=== PATIENT | female | born 2000 | race American Indian/Alaskan Native ===

== ENCOUNTER 2024-01-20 00:50 | Emergency (ER) | payer MEDICAID ==
[2024-01-20] MEDS: bacitracin 15gm ointment TP ONE (02:15)
[2024-01-20 02:22] VITALS: BP 144/72; PULSE 77; RESP 16; TEMP 96.9; O2SAT 99
== END 2024-01-20 02:26 | disposition home or self-care (01) ==
LOC: ER 00:51
DX: S90.822A Blister (nonthermal), left foot, initial encounter (principal); X58.XXXA Exposure to other specified factors, initial encounter; Y93.89 Activity, other specified; Y92.89 Other specified places as the place of occurrence of the external cause; Y99.8 Other external cause status
CPT/HCPCS: 99282; J7030; A6449

== ENCOUNTER 2024-01-22 03:10 | Emergency (ER) | payer MEDICAID ==
[~2024-01-22] VITALS: Ht 152.4 cm; Wt 65.5 kg
[2024-01-22 03:13] VITALS: BP 119/85; PULSE 110; RESP 16; TEMP 98; O2SAT 100
[2024-01-22] MEDS: acetaminophen 325mg tablet PO ONE (04:03)
== END 2024-01-22 04:08 | disposition home or self-care (01) ==
LOC: ER 03:10
DX: S90.822A Blister (nonthermal), left foot, initial encounter (principal); X58.XXXA Exposure to other specified factors, initial encounter; Y93.89 Activity, other specified; Y92.89 Other specified places as the place of occurrence of the external cause; Y99.8 Other external cause status
CPT/HCPCS: 99282

== ENCOUNTER 2024-04-28 05:28 | Emergency (ER) | payer MEDICAID ==
[~2024-04-28] VITALS: Ht 157.5 cm; Wt 52.3 kg
[2024-04-28 05:30] VITALS: BP 113/81; PULSE 102; RESP 18; TEMP 98.3; O2SAT 97
[2024-04-28 06:57] LABS: BILIRUBIN,URINE NEGATIVE (Neg); CLARITY,URINE SLIGHTLY CLOUDY (Clear); COLOR,URINE YELLOW (Yellow); GLUCOSE, URINE NEGATIVE (Neg); KETONES,URINE TRACE mg/dl (Neg); LEUKOCYTE ESTERASE ,URINE NEGATIVE (Neg); NITRITES, URINE POSITIVE (Neg); OCCULT BLOOD,URINE NEGATIVE (Neg); PROTEIN,URINE NEGATIVE (Neg)
[2024-04-28 07:11] LABS: UA COLLECTION TYPE OTHER
[2024-04-28 07:16] LABS: SQUAMOUS EPITHELIAL CELL,UR MANY /LPF (FEW); TRANSITIONAL EPI CELLS,URINE MODERATE /HPF
[2024-04-28 07:17] LABS: BACTERIA,URINE 4+ /HPF (Neg); RBC,URINE 0-2 /HPF (0-2)
[2024-04-28 07:18] LABS: CAL OXALATE CRYSTALS 1+ /HPF (NEGATIVE)
[2024-04-30 08:25] LABS: CHLAMYDIA TRACHOMATIS, NAA Negative (Negative)
== END 2024-04-28 07:24 | disposition home or self-care (01) ==
LOC: ER 05:28
DX: Z00.00 Encounter for general adult medical examination without abnormal findings (principal); Z59.00 Homelessness unspecified
CPT/HCPCS: 81001; 87491; 99283

== ENCOUNTER 2024-04-30 21:41 | Emergency (ER) | payer MEDICAID ==
[~2024-04-30] VITALS: Ht 154.9 cm; Wt 51.0 kg
[2024-04-30] MEDS: normal saline 1000ML IV soln IVB ONE (22:39)
[2024-04-30 22:48] LABS: BASOPHILS % (AUTO) 0.5 % (0-1); EOSINOPHILS % (AUTO) 0.5 % (0-6); HEMATOCRIT 41.4 % (35.0-45.0); HEMOGLOBIN 13.3 g/dl (12.0-16.0); LYMPHOCYTES # (AUTO) 1.6 X10'3 (1.1-4.8); MEAN CORPUSCULAR HEMOGLOBIN 26.9 PG (27.0-31.0); MEAN CORPUSCULAR VOLUME 84.1 FL (78-98); MEAN PLATELET VOLUME 8.4 FL (7.4-10.4); MONOCYTES # (AUTO) 0.8 X10'3 (0-0.9); MONOCYTES % (AUTO) 8.6 % (2-12); NEUTROPHILS # (AUTO) 6.6 X10'3 (1.8-7.7); NEUTROPHILS % (AUTO) 72.4 % (42-75); PLATELET COUNT 333 X10'3 (140-440); RED BLOOD COUNT 4.92 X10'6 (4.20-5.60); RED CELL DISTRIBUTION WIDTH 16.8 % (11.5-14.5); WHITE BLOOD COUNT 9.1 X10'3 (4.5-11.0)
[2024-04-30 22:51] LABS: ALBUMIN 3.5 G/DL (3.4-5.0); ANION GAP 6 (8-16); BLOOD UREA NITROGEN 9 MG/DL (7-18); BUN/CREATININE RATIO 14.1 (10.0-20.0); CHLORIDE 105 MMOL/L (99-107); CREATININE 0.64 MG/DL (0.40-0.90); ETHANOL < 10 MG/DL (<10); GLUCOSE 91 MG/DL (70-104); POTASSIUM 3.6 MMOL/L (3.5-5.1); SODIUM 139 MMOL/L (135-145); TOTAL CARBON DIOXIDE 27.8 MMOL/L (24-32); eCRCL 103 ML/MIN; eGFR > 90 ML/MIN
[2024-04-30 22:53] LABS: URINE HCG NEGATIVE (NEG)
[2024-04-30 23:11] LABS: URINE AMPHETAMINE SCREEN POSITIVE (Neg); URINE BARBITUATE SCREEN NEGATIVE (Neg); URINE BENZODIAZEPINES SCREEN NEGATIVE (Neg); URINE CANNABINOID SCREEN NEGATIVE (Neg); URINE COCAINE SCREEN NEGATIVE (Neg); URINE METHADONE SCREEN NEGATIVE (Neg); URINE OPIATE SCREEN NEGATIVE (Neg); URINE PHENCYCLIDINE SCREEN NEGATIVE (Neg)
[2024-04-30] MEDS ORDERED: iohexol 300mg/ml 100ml inj. ONE (23:48)
[2024-05-01 02:48] VITALS: BP 103/81; PULSE 101; RESP 17; TEMP 97.8; O2SAT 97
== END 2024-05-01 02:55 | disposition home or self-care (01) ==
LOC: ER 21:43 → EEVIPCON 21:43 → ER 05-01 02:55
DX: R07.81 Pleurodynia (principal); R07.89 Other chest pain; J45.909 Unspecified asthma, uncomplicated; F17.200 Nicotine dependence, unspecified, uncomplicated; F15.90 Other stimulant use, unspecified, uncomplicated
CPT/HCPCS: 36415; 71046; 74177; 80048; 80305; 80320; 81025; 85025; 96360; 99285; J7030; Q9967

== ENCOUNTER 2024-05-07 21:02 | Emergency (ER) | payer MEDICAID ==
[~2024-05-07] VITALS: Ht 154.9 cm; Wt 51.0 kg
[2024-05-07 21:13] VITALS: TEMP 98.4
[2024-05-07 21:52] LABS: URINE HCG NEGATIVE (NEG)
[2024-05-07 21:53] VITALS: O2SAT 98
[2024-05-07 21:53] LABS: BILIRUBIN,URINE NEGATIVE (Neg); CLARITY,URINE CLOUDY (Clear); COLOR,URINE YELLOW (Yellow); GLUCOSE, URINE NEGATIVE (Neg); KETONES,URINE NEGATIVE (Neg); LEUKOCYTE ESTERASE ,URINE NEGATIVE (Neg); NITRITES, URINE NEGATIVE (Neg); OCCULT BLOOD,URINE NEGATIVE (Neg); PROTEIN,URINE NEGATIVE (Neg)
[2024-05-07 21:55] LABS: BASOPHILS # (AUTO) 0.1 X10'3 (0-0.2); EOSINOPHILS # (AUTO) 0.3 X10'3 (0-0.9); EOSINOPHILS % (AUTO) 3.4 % (0-6); HEMATOCRIT 40.4 % (35.0-45.0); HEMOGLOBIN 12.9 g/dl (12.0-16.0); LYMPHOCYTES # (AUTO) 2.1 X10'3 (1.1-4.8); LYMPHOCYTES % (AUTO) 24.4 % (21-51); MEAN CORPUSCULAR HEMOGLOBIN 27.1 PG (27.0-31.0); MEAN CORPUSCULAR HGB CONC 31.9 g/dL (33.0-36.5); MEAN CORPUSCULAR VOLUME 84.8 FL (78-98); MONOCYTES # (AUTO) 0.8 X10'3 (0-0.9); MONOCYTES % (AUTO) 9.5 % (2-12); NEUTROPHILS # (AUTO) 5.3 X10'3 (1.8-7.7); NEUTROPHILS % (AUTO) 61.7 % (42-75); PLATELET COUNT 482 X10'3 (140-440); RED BLOOD COUNT 4.77 X10'6 (4.20-5.60); WHITE BLOOD COUNT 8.6 X10'3 (4.5-11.0)
[2024-05-07 21:58] LABS: UA COLLECTION TYPE CLN CATCH MIDSTREAM
[2024-05-07 21:59] LABS: SQUAMOUS EPITHELIAL CELL,UR MANY /LPF (FEW)
[2024-05-07 22:00] LABS: BACTERIA,URINE FEW /HPF (Neg); RBC,URINE 0-2 /HPF (0-2); WBC,URINE 0-4 /HPF (0-4)
[2024-05-07 22:07] LABS: ALANINE AMINOTRANSFERASE 24 U/L (12-78); ALBUMIN 3.6 G/DL (3.4-5.0); ALBUMIN/GLOBULIN RATIO 0.8 (1.1-1.5); ALKALINE PHOSPHATASE 102 IU/L (46-116); ANION GAP 7 (8-16); ASPARTATE AMINO TRANSFERASE 18 U/L (10-37); BILIRUBIN,TOTAL 0.5 MG/DL (0.1-1.0); BLOOD UREA NITROGEN 9 MG/DL (7-18); BUN/CREATININE RATIO 11.4 (10.0-20.0); CHLORIDE 103 MMOL/L (99-107); CREATININE 0.79 MG/DL (0.40-0.90); GLUCOSE 88 MG/DL (70-104); LIPASE 134 U/L (16-77); POTASSIUM 3.6 MMOL/L (3.5-5.1); SODIUM 139 MMOL/L (135-145); TOTAL CARBON DIOXIDE 29.1 MMOL/L (24-32); TOTAL PROTEIN 8.2 G/DL (6.4-8.2); eCRCL 84 ML/MIN; eGFR 90 ML/MIN
[2024-05-07] MEDS ORDERED: DOXY100C43 PO (22:13)
[2024-05-07] MEDS: CefTRIAXone 500MG IM Kit w/LIDOcaine IM ONE (22:23)
[2024-05-07 23:27] VITALS: BP 100/69; PULSE 84; RESP 14
== END 2024-05-07 23:32 | disposition home or self-care (01) ==
LOC: ER 21:02
DX: R10.84 Generalized abdominal pain (principal); J02.9 Acute pharyngitis, unspecified; R30.9 Painful micturition, unspecified; J45.909 Unspecified asthma, uncomplicated; F12.90 Cannabis use, unspecified, uncomplicated; Z72.89 Other problems related to lifestyle; Z59.00 Homelessness unspecified; Z79.2 Long term (current) use of antibiotics
CPT/HCPCS: 36415; 80053; 81001; 81025; 83690; 85025; 96372; 99283; J0696

== ENCOUNTER 2024-07-12 02:56 | Emergency (ER) | payer MEDICAID ==
[~2024-07-12] VITALS: Ht 160 cm; Wt 54.5 kg
[2024-07-12 03:08] VITALS: BP 102/51; PULSE 88; RESP 16; TEMP 98.2; O2SAT 97
== END 2024-07-12 06:53 | disposition left against medical advice (07) ==
LOC: ER 02:57
DX: S80.02XA Contusion of left knee, initial encounter (principal); S80.01XA Contusion of right knee, initial encounter; Z53.21 Procedure and treatment not carried out due to patient leaving prior to being seen by health care provider; X58.XXXA Exposure to other specified factors, initial encounter; Y93.89 Activity, other specified; Y92.89 Other specified places as the place of occurrence of the external cause; Y99.8 Other external cause status
CPT/HCPCS: 73590

== ENCOUNTER 2024-10-07 08:50 | Emergency (ER) | payer MEDICAID ==
[~2024-10-07] VITALS: Ht 152.4 cm; Wt 54.3 kg
[2024-10-07] MEDS ORDERED: AMOX-117 PO (10:36)
[2024-10-07 10:44] VITALS: BP 110/41; PULSE 93; RESP 16; TEMP 98.3; O2SAT 99
== END 2024-10-07 10:45 | disposition home or self-care (01) ==
LOC: ER 08:51
DX: H66.93 Otitis media, unspecified, bilateral (principal); J45.909 Unspecified asthma, uncomplicated; F15.90 Other stimulant use, unspecified, uncomplicated
CPT/HCPCS: 99283

== ENCOUNTER 2024-10-09 14:55 | Emergency (ER) | payer MEDICAID ==
[~2024-10-09] VITALS: Ht 177.8 cm; Wt 56.8 kg
[~2024-10-09 14:55] MED LIST: AMOX-117 PO
[2024-10-09 15:00] VITALS: BP 99/59; PULSE 85; RESP 16; O2SAT 100
[2024-10-09] MEDS: neomy sulf/polymyx B sulf/HC 10ml otic suspension LEFT EAR ONE (15:49)
[2024-10-09] MEDS: amox tr/potassium clavulanate 875/125mg TAB PO ONE (15:49)
[2024-10-09 15:52] VITALS: TEMP 98.9
== END 2024-10-09 15:54 | disposition home or self-care (01) ==
LOC: ER 14:56
DX: H60.92 Unspecified otitis externa, left ear (principal); H83.02 Labyrinthitis, left ear; J45.909 Unspecified asthma, uncomplicated; F15.90 Other stimulant use, unspecified, uncomplicated
CPT/HCPCS: 99283

== ENCOUNTER 2025-02-27 15:20 | Emergency (ER) | payer MEDICAID ==
[~2025-02-27] VITALS: Ht 162.6 cm; Wt 55.0 kg
--- NOTE | 2025-02-27 16:48 | Physician Documentation ---
History of Present Illness ~ Chief Complaint: Dizziness Stated Complaint: FEELING FAINT Time Seen by MD: 16:26 Primary Medical Doctor: [facility] HPI This is a 24-year-old female who was brought in from the [place] for concern for feeling like she was going to faint, patient additionally reports she would like to be tested for STIs though reports no dysuria or other symptoms. Patient reports I need my vagina checked I hear voices coming from it. EMS reports patient reports them feeling faint and wanting a test. Medication Reconciliation Allergies: Coded Allergies: No Known Allergies (Unverified , 02/27/25) Past Medical History Past Medical History: Asthma Past Surgical History: no surgical history Alcohol Use: Occasionally Drug Use: methamphetamine Lives In: Homeless Physical Exam Vital Signs: Temperature: 98.9, Heart Rate: 99, Respiratory Rate: 13, BP: 123/81, Pulse Oximetry: 99, Weight: 55.000 Oxygen Flow Rate: 0 Physical Exam VITALS: Reviewed and as above. GENERAL: Alert and oriented x4, nontoxic appearing, no apparent distress, disheveled appearing HEENT: PERRLA EOMI RESPIRATORY: No increased work of breathing, no respiratory distress, speaking in full clear sentences, lung sounds in all malloy CV: Regular rate and rhythm no murmur BACK: No CVA tenderness GI: Nontender to palpation MUSCULOSKELETAL: NEURO: GCS of 15 PSYCH: Bizarre mood and affect, stating no SI or HI Progress Results/Orders Results/Orders Orders - CORNELIA DURAN Electrocardiogram (02/27/25 16:16) Completed Orders - CORNELIA DURAN Cbc/Diff (02/27/25 16:16) Electrocardiogram (02/27/25 16:16) BMP (02/27/25 16:16) Hcg, Ur Ql (02/27/25 16:16) Drug Screen, Urine (02/27/25 16:16) Ethanol (02/27/25 16:16) Ua W/Microscopic, Cult If Ind (02/27/25 17:24) Vital Signs 02/27/25 02/27/25 02/27/25 02/27/25 15:28 17:53 17:54 19:01 Temp 98.9 98.9 98.9 Pulse 99 98 90 Resp 13 16 16 16 B/P (MAP) 123/81 128/84 (99) 126/76 Pulse Ox 99 100 99 O2 Flow Rate 0 0 Laboratory Tests Test 02/27/25 16:58 02/27/25 17:24 White Blood Count 9.1 Red Blood Count 4.70 Hemoglobin 13.6 Hematocrit 41.5 Mean Corpuscular Volume 88.3 Mean Corpuscular Hemoglobin 29.1 Mean Corpuscular Hemoglobin Concent 32.9 L Red Cell Distribution Width 15.2 H Platelet Count 304 Mean Platelet Volume 7.8 Neutrophils (%) (Auto) 68.4 Lymphocytes (%) (Auto) 22.1 Monocytes (%) (Auto) 8.6 Eosinophils (%) (Auto) 0.5 Basophils (%) (Auto) 0.4 Neutrophils # (Auto) 6.2 Lymphocytes # (Auto) 2.0 Monocytes # (Auto) 0.8 Eosinophils # (Auto) 0.0 Basophils # (Auto) 0.0 CBC Comment Sodium Level 142 Potassium Level 3.6 Chloride Level 106 Carbon Dioxide Level 27.5 Anion Gap 9 Blood Urea Nitrogen 12 Creatinine 0.73 Estimated GFR/1.73 m2 > 90 BUN/Creatinine Ratio 16.4 Glucose Level 83 Calcium Level 8.9 Albumin 3.9 Chemistry Comments Ethyl Alcohol Level < 10 Urine Specimen Description Non-specified Urine Color Yellow Urine Clarity Slightly cloudy Urine pH 6.0 Urine Specific [place] >=1.030 Urine Protein Negative Urine Glucose (UA) Negative Urine Ketones Negative Urine Occult Blood Negative Urine Nitrite Negative Urine Bilirubin Negative Urine Urobilinogen 0.2 Urine Leukocyte Esterase Negative Urine RBC 0-2 Urine WBC 5-10 H Urine Squamous Epithelial Cells Many Urine Bacteria Mod Urine Mucus Few Urine Culture Indicated Rejected for culture Volume Urine Centrifuged 10 ml Urine HCG, Qualitative Negative Urine Comment Urine Opiates Screen Negative Urine Methadone Screen Negative Urine Fentanyl Screen Positive H Urine Barbiturates Screen Negative Urine Phencyclidine Screen Negative Urine Amphetamines Screen Positive Urine Benzodiazepines Screen Negative Urine Cocaine Screen Negative Urine Cannabinoids Screen Positive Drug Screen Comment Medical Decision Making Findings This 24-year-old female was brought in by EMS for vague symptoms of lightheadedness, lab work did not demonstrate evidence of metabolic or electrolyte abnormality and patient was seen ambulating with a steady gait. Of note patient did have positive U tox for methamphetamine and fentanyl. Patient has been advised that she can follow up for STI testing at its [facility] [place] [facility] as she is reporting no symptoms currently, I suspect the patient may be under the influence of methamphetamine and/or other substance given her bizarre behavior and lack of reported symptoms. Patient does not appear gravely disabled as she appears able make arrangements for transportation and convey desires and needs to nursing staff. Patient was observed by nursing staff rummaging through drawers and attempting to steal items from exam room supply drawers. Patient is otherwise well-appearing and vital signs stable, she is appropriate for outpatient follow up. Differential Dx:Considerations: Include: anemia, CVA, dehydration, dysrhythmia, TIA, other (Intoxication, gravely disabled, malingering, homeless, hungry) Departure Time of Disposition: 18:41 Disposition: 01 HOME / SELF CARE / HOMELESS Impression: Primary Impression: Dizziness Condition: Improved Discharge Instructions: Near-Syncope Additional Instructions: As you reported no symptoms consistent with an STI today we are unable to provide any STI testing, you will need to follow up with a reproductive health clinic or your primary care provider for STI testing, please follow up with your primary care provider, [facility], or reproductive health clinic such as [facility] for STI testing in the next few days. Please return to the emergency department for any new or worsening concerning symptoms. Referrals: NO PRIMARY CARE PROVIDER (PCP) Education Educated: Patient Educated regarding: diagnosis, treatment, prognosis, need for follow up Signature Scribe Signature: No scribe Attestation: The note accurately reflects work and decisions made by me.ROBERTO CARLOS [place] 03/01/25 03:37 CORNELIA DURAN Feb 27, 2025 16:48
[2025-02-27 17:13] LABS: BASOPHILS % (AUTO) 0.4 % (0-1); EOSINOPHILS % (AUTO) 0.5 % (0-6); HEMATOCRIT 41.5 % (35.0-45.0); HEMOGLOBIN 13.6 g/dl (12.0-16.0); LYMPHOCYTES % (AUTO) 22.1 % (21-51); MEAN CORPUSCULAR HEMOGLOBIN 29.1 PG (27.0-31.0); MEAN CORPUSCULAR HGB CONC 32.9 g/dL (33.0-36.5); MEAN CORPUSCULAR VOLUME 88.3 FL (78-98); MEAN PLATELET VOLUME 7.8 FL (7.4-10.4); MONOCYTES # (AUTO) 0.8 X10'3 (0-0.9); MONOCYTES % (AUTO) 8.6 % (2-12); NEUTROPHILS # (AUTO) 6.2 X10'3 (1.8-7.7); NEUTROPHILS % (AUTO) 68.4 % (42-75); PLATELET COUNT 304 X10'3 (140-440); RED CELL DISTRIBUTION WIDTH 15.2 % (11.5-14.5); WHITE BLOOD COUNT 9.1 X10'3 (4.5-11.0)
--- NOTE | 2025-02-27 17:18 | ELECTROCARDIOGRAPH REPORT ---
[facility] Test Date: 2025-02-27 Test Time: 16:30:32 Pat Name: GIANNA PITTMAN Department: EMERGENCY ROOM Room: Gender: F Olive Pitter: GIANFRANCO : [id number] Requested By: CORNELIA DURAN Order Number: [id number] Reading MD: Dr. Himanshu Tirado Measurements Intervals Stark Rate: 99 P: 37 WY: 117 QRS: 82 QRSD: 94 T: 71 QT: 343 QTc: 441 Interpretive Statements Sinus rhythm Baseline wander in lead(s) V2 Electronically Signed On 02-27-2025 17:23:[address] Himanshu Tirado Please click the below link to view image of tracing.
[2025-02-27 17:23] LABS: ALBUMIN 3.9 G/DL (3.4-5.0); ANION GAP 9 (8-16); BLOOD UREA NITROGEN 12 MG/DL (7-18); BUN/CREATININE RATIO 16.4 (10.0-20.0); CALCIUM 8.9 MG/DL (8.5-10.1); CHLORIDE 106 MMOL/L (99-107); CREATININE 0.73 MG/DL (0.40-0.90); ETHANOL < 10 MG/DL (<10); GLUCOSE 83 MG/DL (70-104); POTASSIUM 3.6 MMOL/L (3.5-5.1); SODIUM 142 MMOL/L (135-145); TOTAL CARBON DIOXIDE 27.5 MMOL/L (24-32); eCRCL 103 ML/MIN; eGFR > 90 ML/MIN
[2025-02-27 17:43] LABS: URINE HCG NEGATIVE (NEG)
[2025-02-27 17:52] LABS: BILIRUBIN,URINE NEGATIVE (Neg); CLARITY,URINE SLIGHTLY CLOUDY (Clear); COLOR,URINE YELLOW (Yellow); GLUCOSE, URINE NEGATIVE (Neg); KETONES,URINE NEGATIVE (Neg); LEUKOCYTE ESTERASE ,URINE NEGATIVE (Neg); NITRITES, URINE NEGATIVE (Neg); OCCULT BLOOD,URINE NEGATIVE (Neg); PROTEIN,URINE NEGATIVE (Neg); UROBILINOGEN,URINE 0.2 E.U/dL (0.2-1.0)
[2025-02-27 17:57] LABS: URINE AMPHETAMINE SCREEN POSITIVE (Neg); URINE BARBITUATE SCREEN NEGATIVE (Neg); URINE BENZODIAZEPINES SCREEN NEGATIVE (Neg); URINE CANNABINOID SCREEN POSITIVE (Neg); URINE COCAINE SCREEN NEGATIVE (Neg); URINE METHADONE SCREEN NEGATIVE (Neg); URINE OPIATE SCREEN NEGATIVE (Neg); URINE PHENCYCLIDINE SCREEN NEGATIVE (Neg)
[2025-02-27 18:01] LABS: UA COLLECTION TYPE NON-SPECIFIED
[2025-02-27 18:02] LABS: SQUAMOUS EPITHELIAL CELL,UR MANY /LPF (FEW)
[2025-02-27 18:03] LABS: BACTERIA,URINE MOD /HPF (Neg); MUCUS STRANDS FEW /LPF (Neg)
[2025-02-27 18:04] LABS: RBC,URINE 0-2 /HPF (0-2)
[2025-02-27 19:01] VITALS: BP 126/76; PULSE 90; RESP 16; TEMP 98.9; O2SAT 99
== END 2025-02-27 19:05 | disposition home or self-care (01) ==
LOC: ER 15:20
DX: R42 Dizziness and giddiness (principal); J45.909 Unspecified asthma, uncomplicated; F15.90 Other stimulant use, unspecified, uncomplicated
CPT/HCPCS: 36415; 80048; 80305; 80320; 81001; 81025; 85025; 93005; 99284

== ENCOUNTER 2025-03-03 23:13 | Emergency (ER) | payer MEDICAID ==
[~2025-03-03] VITALS: Ht 160 cm; Wt 56.8 kg
[2025-03-03 23:19] VITALS: BP 100/73; PULSE 62; RESP 22; TEMP 98.6; O2SAT 100
--- NOTE | 2025-03-03 23:39 | Physician Documentation ---
History of Present Illness ~ General Chief Complaint: See Chief Complaint Stated Complaint: ABD PAIN Time Seen by MD: 23:27 Primary Medical Doctor: [facility] History of Present Illness Initial Comments 24 year old female BIB EMS, yelling and reporting that she used methamphetamine tonight and doesn't want anyone to touch her. She denies other medical complaints. She won't allow anyone to take vital signs. She denies abdominal pain, chest pain. Medication Reconciliation Allergies: Coded Allergies: No Known Allergies (Unverified , 02/27/25) Past Medical History Past Medical History: Asthma Past Surgical History: no surgical history Alcohol Use: Occasionally Drug Use: methamphetamine Lives In: Homeless Review of Systems All Other Systems at this time: Reviewed and Negative Physical Exam Physical Exam Vital Signs: RN Vital Signs have been reviewed: Yes, Temperature: 98.6, Source: Oral, Heart Rate: 62, Respiratory Rate: 22, BP: 100/73, Pulse Oximetry: 100, Weight: 56.810 Oxygen Flow Rate: 0 Physical Exam Gen: yelling, writhing around on gurney HEENT: PERRL, moist oral mucosa, EOMI Pulmonary: No respiratory distress Cardiac: tachycardic, no murmur, rub or gallop GI: nondistended, soft, nontender, no guarding, no rebound MSK: no deformity Skin: w/d/i, no rash Neuro: alert, nonfocal Psych: agitated Progress Results/Orders Results/Orders Vital Signs 03/03/25 23:19 Temp 98.6 Pulse 62 Resp 22 B/P (MAP) 100/73 Pulse Ox 100 O2 Flow Rate 0 Medical Decision Making Findings 24 year old female with apparent methamphetamine intoxication. Exam otherwise unremarkable, no complaints. Will discharge with return precautions. Differential Diagnosis Ddx = methamphetamine intoxication, alcohol intoxication, psychiatric disorder. Departure Disposition: HOME / SELF CARE / HOMELESS Impression: Primary Impression: General medical exam Additional Impression: Intoxication by drug Condition: Stable Discharge Instructions: Substance Use Disorder Referrals: NO PRIMARY CARE PROVIDER (PCP) Education Educated: Patient Educated regarding: diagnosis, treatment, prognosis, need for follow up Signature Scribe Signature: . Attestation: AMADA HUYNH MD Mar 03, 2025 23:39
== END 2025-03-03 23:46 | disposition home or self-care (01) ==
LOC: ER 23:13
DX: F15.129 Other stimulant abuse with intoxication, unspecified (principal); J45.909 Unspecified asthma, uncomplicated; Z59.00 Homelessness unspecified; Z72.89 Other problems related to lifestyle
CPT/HCPCS: 99281; 99283

== ENCOUNTER 2025-03-06 06:57 | Emergency (ER) | payer MEDICAID ==
[~2025-03-06] VITALS: Ht 160 cm; Wt 52.0 kg
[2025-03-06 07:06] VITALS: PULSE 81
--- NOTE | 2025-03-06 08:19 | Physician Documentation ---
History of Present Illness ~ Chief Complaint: Vaginal pain Stated Complaint: VAGINAL BLEED Time Seen by MD: 07:57 Primary Medical Doctor: [facility] HPI 24-year-old female presenting for broken vagina." She denies any vaginal pain any recent intercourse. Unable to give reliable history due to intoxication Medication Reconciliation Allergies: Coded Allergies: No Known Allergies (Unverified , 03/06/25) Past Medical History Past Medical History: Asthma Past Surgical History: no surgical history Alcohol Use: Occasionally Drug Use: methamphetamine Lives In: Homeless Review of Systems All Other Systems at this time: Reviewed and Negative Constitutional: Denies: fever Cardiovascular: Denies: chest pain Gastrointestinal: Denies: abdominal pain Female Genitalia: Denies: vaginal discharge Physical Exam Vital Signs: Temperature: 97.8, Source: Temporal, Heart Rate: 81, Respiratory Rate: 18, BP: 123/71, Pulse Oximetry: 98, Weight: 52.000 Physical Exam Well-appearing no distress lying down in bed naked with her gown pulled up and genitals showing smoking cigarette Abdomen is soft nontender external visual exam unremarkable dark clotted blood externally.No active bleeding. no lacerations Progress Results/Orders Reviewed/noted all lab results: Yes (Independent interpretation of urinalysis shows negative ) Results/Orders Completed Orders - MORAIMA DAVE MD Hcg, Ur Ql (03/06/25 07:58) Vital Signs 03/06/25 07:06 Temp 97.8 Pulse 81 Resp 18 B/P (MAP) 123/71 Pulse Ox 98 Laboratory Tests Test 03/06/25 08:25 Urine HCG, Qualitative Negative Medical Decision Making Additional info obtained from: old records Findings Prior ED note This 24-year-old female was brought in by EMS for vague symptoms of lightheadedness, lab work did not demonstrate evidence of metabolic or electrolyte abnormality and patient was seen ambulating with a steady gait. Of note patient did have positive U tox for methamphetamine and fentanyl. Patient has been advised that she can follow up [facility] as she is reporting no symptoms currently, I suspect the patient may be under the influence of methamphetamine and/or other substance given her bizarre behavior and lack of reported symptoms. Patient does not appear gravely disabled as she appears able make arrangements for transportation and convey desires and needs to nursing staff. Patient was observed by nursing staff rummaging through drawers and attempting to steal items from exam room supply drawers. Patient is otherwise well-appearing and vital signs stable, she is appropriate for outpatient follow up. "I need my vagina checked I hear voices coming from it. Urinary Diff Dx:Considerations: Include: Genital Diff Dx:Considerations: Include: Dsymenorrhea, Ectopic Departure Disposition: HOME / SELF CARE / HOMELESS Impression: Primary Impression: Vaginal bleeding Additional Impression: Polysubstance abuse Additional Impression Text Patient with strong psychiatric and methamphetamine history presenting for broken vagina. She declines to give me any history of sexual abuse or sexual trauma. She has some scant clotting in her vaginal orifice with no signs of external trauma. She is obviously intoxicated likely methamphetamines due to her bizarre behavior and she also has been seen in the past for a complaint of her I need my vagina checked I hear voices coming from it. Her mild bleeding appears to be menstrual in nature. I did recommend outpatient follow up if no resolution of her symptoms in the next few days. Additional Instructions: I do not see any wounds on your vagina and your bleeding appears to be menstrual in nature. Please return if you develop fever otherwise this should improve in the next several days. If you continue to have unchanged vaginal bleeding please seek evaluation with a painter apprentice for a screening exam. Referrals: NO PRIMARY CARE PROVIDER (PCP) Signature Scribe Signature: na Attestation: MORAIMA Hernandez MD Mar 06, 2025 08:19
[2025-03-06 09:01] LABS: URINE HCG NEGATIVE (NEG)
[2025-03-06 09:23] VITALS: BP 107/68; RESP 14; TEMP 97.8; O2SAT 98
== END 2025-03-06 09:30 | disposition home or self-care (01) ==
LOC: ER 06:58
DX: N93.9 Abnormal uterine and vaginal bleeding, unspecified (principal); F19.10 Other psychoactive substance abuse, uncomplicated; F15.90 Other stimulant use, unspecified, uncomplicated; J45.909 Unspecified asthma, uncomplicated
CPT/HCPCS: 81025; 99283

== ENCOUNTER 2025-03-10 00:51 | Emergency (ER) | payer MEDICAID ==
[~2025-03-10] VITALS: Ht 162.6 cm; Wt 41.8 kg
[2025-03-10 00:54] VITALS: PULSE 113; RESP 19; TEMP 95.8; O2SAT 96
--- NOTE | 2025-03-10 01:20 | Physician Documentation ---
History of Present Illness ~ General Chief Complaint: Rash Stated Complaint: HIVES Time Seen by MD: 01:19 Primary Medical Doctor: [facility] Source: patient Mode of Arrival: POV Exam Limitations: no limitations History of Present Illness Initial Comments Patient in who is well known to the ER. Recently used meth prior to arrival. No complaints. Undressing herself in the lobby. Medication Reconciliation Allergies: Coded Allergies: No Known Allergies (Unverified , 03/10/25) Past Medical History Past Medical History: Asthma Other Past Medical History: Meth abuse Past Surgical History: no surgical history Alcohol Use: Occasionally Drug Use: methamphetamine Lives In: Homeless Review of Systems All Other Systems at this time: Reviewed and Negative Physical Exam Physical Exam Vital Signs: Temperature: 95.8, Heart Rate: 113, Respiratory Rate: 19, Pulse Oximetry: 96, Weight: 41.800 Physical Exam General: Alert , well-appearing, well-nourished, actively high on meth HEENT: Normocephalic, atraumatic, no visible or palpable masses or depression, extraocular movements intact, PERRLA, no scleral icterus, Heart: Regular rate and rhythm, Lungs: Clear normal work of breathing Extremities: Full range of motion, no acute deformity, Musculoskeletal: Normal gait, Neurologic: Cranial nerves 2-12 are intact, Psychiatric: High on meth Skin: Good turgor, no rashes Progress Results/Orders Results/Orders Vital Signs 03/10/25 00:54 Temp 95.8 Pulse 113 Resp 19 Pulse Ox 96 Departure Disposition: 01 HOME / SELF CARE / HOMELESS Impression: Primary Impression: Methamphetamine abuse Additional Impression Text No significant medical complaints. Patient actively using meth. Counseled on meth abuse and discharged home to follow up with PCP. Return here if new or worsening symptoms. Discharge Instructions: Methamphetamines Use Disorder Additional Instructions: Follow-up with your doctor in 7-10 days. Return here if new or worsening symptoms prior to follow-up. Referrals: NO PRIMARY CARE PROVIDER (PCP) Education Educated: Patient Educated regarding: diagnosis, treatment, need for follow up Signature Scribe Signature: No scribe Attestation: No scribe ILANA ARMAS MD Mar 10, 2025 01:20
== END 2025-03-10 01:28 | disposition home or self-care (01) ==
LOC: ER 00:52
DX: F15.10 Other stimulant abuse, uncomplicated (principal); J45.909 Unspecified asthma, uncomplicated; Z59.00 Homelessness unspecified; Z72.89 Other problems related to lifestyle
CPT/HCPCS: 99281

== ENCOUNTER 2025-03-12 06:59 | Emergency (ER) | payer MEDICAID ==
[~2025-03-12] VITALS: Ht 152.4 cm; Wt 68.2 kg
[2025-03-12 07:01] VITALS: BP 131/65; PULSE 103; RESP 16; TEMP 97.8; O2SAT 98
== END 2025-03-12 08:04 | disposition left against medical advice (07) ==
LOC: ER 07:00
DX: Z00.8 Encounter for other general examination (principal); Z53.21 Procedure and treatment not carried out due to patient leaving prior to being seen by health care provider

== ENCOUNTER → 2025-03-22 | Emergency (ER) | payer MEDICAID ==
[~2025-03-22] VITALS: Ht 152.4 cm; Wt 68.2 kg
[2025-03-22 17:29] VITALS: BP 108/72; PULSE 135; RESP 18; TEMP 97.9; O2SAT 97
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
== END | disposition left against medical advice (07) ==
LOC: ER 17:20
DX: F19.10 Other psychoactive substance abuse, uncomplicated (principal); J45.909 Unspecified asthma, uncomplicated; F15.90 Other stimulant use, unspecified, uncomplicated
CPT/HCPCS: 99281; 99282